=== PATIENT | female | born 1990 | race Two or more races ===

== ENCOUNTER 2024-05-01 14:30 | Inpatient (IN) | payer OTHER ==
[~2024-05-01] VITALS: Ht 154.9 cm; Wt 65.3 kg
[2024-05-05] VITALS (9 sets, daily range): BP systolic 115–138; BP diastolic 66–83; O2SAT 99
[2024-05-05] MEDS ORDERED: MORPHINE SULFATE 4 MG/ML CARTRIDGE IV PRN (04:45)
[2024-05-05] MEDS ORDERED: RINGERS SOLUTION,LACTATED 1,000 ML IV SCH (04:45)
[2024-05-05] MEDS ORDERED: PRENATAL TABLE1 EAC1 PO (06:07)
[2024-05-05] MEDS ORDERED: VALTREX1000 MG PO (06:07)
[2024-05-05 06:41] LABS: INR 0.94; PARTIAL THROMBOPLASTIN TIME 27.9 SECONDS (22.0-34.0); PROTHROMBIN TIME 10.3 SECONDS (9.0-11.5)
[2024-05-05 07:01] LABS: HEMATOCRIT 32.4 % (36.0-45.00); HEMOGLOBIN 10.8 g/dL (12.0-15.00); MEAN CELL VOLUME 88.1 fL (80.00-100.00); MEAN CORPUSCULAR HEMOGLOBIN 29.5 pg (27.00-32.0); MEAN CORPUSCULAR HGB CONC 33.5 g/dl (32.0-36.0); PLATELET COUNT 168 K/uL (150-450); RED BLOOD COUNT 3.67 M/uL (4.00-6.00); RED CELL DISTRIBUTION WIDTH 13.7 % (11.5-14.5)
[2024-05-05] MEDS ORDERED: ERYTHROMYCIN BASE OPHT 1GM EACH TUBE OP ONE (13:47)
[2024-05-05] MEDS ORDERED: CHLORHEXIDINE GLUCONATE 120 ML BOTTLE TOP ONE (13:48)
[2024-05-05] MEDS ORDERED: LIDOCAINE HCL 1% 10ML VIAL ONE ×2 (13:48→14:40)
[2024-05-05] MEDS ORDERED: OXYTOCIN 20 UNITS/1000ML RL PIGGYBAG IV ONE (13:48)
[2024-05-05] MEDS ORDERED: OxyCODONE HCL/APAP UD (PERCOCET) PO PRN (15:30)
[2024-05-05] MEDS ORDERED: CHLORHEXIDINE GLUCONATE 120 ML BOTTLE TOP SCH (15:30)
[2024-05-05] MEDS ORDERED: OXYTOCIN 1,000 ML IV SCH (15:30)
[2024-05-05] MEDS ORDERED: DOCUSATE SODIUM 100MG CAP PO SCH (17:00)
[2024-05-05] MEDS ORDERED: KETOROLAC TROMETHAMINE 10 MG TABLET PO SCH (18:00)
[2024-05-06 00:31] VITALS: BP 104/68
[2024-05-06 09:35] VITALS: BP 117/70
[2024-05-06 11:45] VITALS: BP 140/84
[2024-05-06 14:09] VITALS: BP 124/66
[2024-05-06 18:33] VITALS: BP 108/70
[2024-05-07] VITALS: BP 130/80
[2024-05-07 09:22] VITALS: BP 132/82
== END 2024-05-07 15:20 | disposition home or self-care (01) | DRG 768 ==
LOC: LDR 05-02 15:00 → OB/GYN 05-05 08:47
PROVIDERS: ADMIT Obstetrics & Gynecology; ATTEND Obstetrics & Gynecology
PROC: 10D07Z6 Extraction of Products of Conception, Vacuum, Via Natural or Artificial Opening (ICD-10-PCS; principal; 2024-05-05)
PROC: 0DQR0ZZ Repair Anal Sphincter, Open Approach (ICD-10-PCS; 2024-05-05)
PROC: 0W8NXZZ Division of Female Perineum, External Approach (ICD-10-PCS; 2024-05-05)
PROC: 4A1HXCZ Monitoring of Products of Conception, Cardiac Rate, External Approach (ICD-10-PCS; 2024-05-05)
DX: O70.21 Third degree perineal laceration during delivery, IIIa (principal); O66.5 Attempted application of vacuum extractor and forceps; Z37.0 Single live birth; Z3A.40 40 weeks gestation of pregnancy; Z20.822 Contact with and (suspected) exposure to COVID-19

== ENCOUNTER 2024-05-01 16:52 | Outpatient (CLI) | payer OTHER | END 2024-05-01 18:20 | disposition home or self-care (01) | LOC: NST 16:52 | PROVIDERS: ATTEND Obstetrics & Gynecology | DX: Z34.83 Encounter for supervision of other normal pregnancy, third trimester (principal) ==